=== PATIENT | female | born 1945 | race African-American/Black ===

== ENCOUNTER 2016-11-30 02:55 | Observation (INO) | payer OTHER ==
[2016-11-30] MEDS ORDERED: ASPIRIN 81 MG CHEWABLE TABLETS PO ONE (04:19)
[2016-11-30] MEDS ORDERED: ASPIRIN 81 MG CHEWABLE TABLETS ONE (04:22)
--- NOTE | 2016-11-30 04:22 | PDOC ---
*Physical Exam - Vital Signs Last Vital Signs Temp Pulse Resp BP Pulse Ox 97.5 F L 75 15 163/95 98 11/30/16 03:50 11/30/16 03:50 11/30/16 03:50 11/30/16 03:50 11/30/16 03:50 ED Treatment Course - LABORATORY CBC & Chemistry Diagram: 11/30/16 04:20 11/30/16 04:20 Medical Decision Making - Medical Decision Making 11/30/16 06:15 Pt seen by the Advanced Practice Provider under my direct supervision Ancillary studies reviewed I agree with plan as outlined by the Advanced Practice Provider
--- NOTE | 2016-11-30 04:31 | PDOC ---
History of Present Illness - General Chief Complaint: Chest Pain Stated Complaint: CHEST PAIN Time Seen by Provider: 11/30/16 04:19 History Source: Patient - History of Present Illness Initial Comments: 11/30/16 05:40 71-year-old Left-sided chest pain, radiating to the back with nausea since yesterday. Denies diaphoresis, palpitations, dizziness, headache, vomiting diarrhea. Reports feeling bloated. Patient has a past medical history of hypertension. Past History - Past Medical History Allergies/Adverse Reactions: Allergies Allergy/AdvReac Type Severity Reaction Status Date / Time Penicillins Allergy Verified 11/30/16 03:50 Home Medications: Ambulatory Orders Amlodipine Besylate [Norvasc -] 10 mg PO DAILY 08/19/12 HTN: Yes - Surgical History Orthopedic Surgery: Yes (ANKLE SX-L) - Suicide/Smoking/Psychosocial Hx Smoking Status: No Smoking History: Never smoked Have you smoked in the past 12 months: No Number of Cigarettes Smoked Daily: 0 Information on smoking cessation initiated: No Hx Alcohol Use: No Drug/Substance Use Hx: No Review of Systems - Review of Systems Able to Perform ROS?: Yes Is the patient limited Montenegrin proficient: No Constitutional: No: Symptoms Reported, See HPI, Chills, Diaphoresis, Fever, Loss of Appetite, Malaise, Night Sweats, Weakness, Weight Stable, Unintentional Wgt. Loss, Unexplained wgt Loss, Other *Physical Exam - Vital Signs Last Vital Signs Temp Pulse Resp BP Pulse Ox 97.5 F L 75 15 163/95 98 11/30/16 03:50 11/30/16 03:50 11/30/16 03:50 11/30/16 03:50 11/30/16 03:50 - Physical Exam General Appearance: Yes: Appropriately Dressed HEENT: positive: Normal ENT Inspection Respiratory/Chest: positive: Lungs Clear, Normal Breath Sounds. negative: Chest Tender Cardiovascular: positive: Regular Rhythm, Regular Rate, S1, S2 Gastrointestinal/Abdominal: positive: Normal Bowel Sounds, Soft Musculoskeletal: positive: Normal Inspection Extremity: positive: Normal Capillary Refill, Normal Inspection, Normal Range of Motion Integumentary: positive: Normal Color, Dry, Warm Neurologic: positive: Fully Oriented, Alert, Normal Mood/Affect Heart Score/ECG Review - History History: Slightly suspicious - Electrocardiogram EKG: Non specific repolarization disturbance - Age Age: >/= 65 - Risk Factors Risk Factors Heart Score: Yes Hx Hypertension Based on the list above the patient has:: 1-2 risk factors - Troponin Troponin: </= normal limit - Score Heart Score - Total: 4 - ECG Intrepretation Rhythm: Regular Rhythm Comment:: 11/30/16 05:51 Normal sinus rhythm, incomplete right bundle branch block ED Treatment Course - LABORATORY CBC & Chemistry Diagram: 11/30/16 04:20 11/30/16 04:20 - ADDITIONAL ORDERS Additional order review: Laboratory Results 11/30/16 11/30/16 04:20 04:20 PT with INR 10.60 INR 0.94 D-Dimer < 200 Sodium 144 Potassium 3.6 Chloride 107 Carbon Dioxide 23 D Anion Gap 14 BUN 12 Creatinine 0.7 D Creat Clearance w eGFR > 60 Random Glucose 96 Calcium 9.4 Magnesium 2.1 Total Bilirubin 0.4 AST 26 D ALT 24 Alkaline Phosphatase 89 Creatine Kinase 285 H Creatine Kinase Index 1.4 CK-MB (CK-2) 4.012 H Troponin I < 0.02 Total Protein 7.9 Albumin 4.0 11/30/16 04:20 RBC 4.78 MCV 78.6 L MCHC 33.8 RDW 14.2 MPV 8.7 Neutrophils % 67.6 D Lymphocytes % 25.5 D Monocytes % 6.2 Eosinophils % 0.5 Basophils % 0.2 - RADIOLOGY Radiology Studies Ordered: Category Date Time Status CHEST PA & LAT [RAD] Stat Radiology 11/30/16 04:19 Taken - Medications Given in the ED: ED Medications Discontinued Medications Generic Name Dose Route Start Last Admin Trade Name Freq PRN Reason Stop Dose Admin Aspirin 162 mg 11/30/16 04:19 11/30/16 04:34 Asa - PO 11/30/16 04:20 162 mg ONCE ONE Administration Progress Note - Progress Note Progress Note: A: Chest pain P: cbc cmp cardiac enzymes chest xray: negative ua will place in observation for this acute chest pain. pending admission by hospitalist *DC/Admit/Observation/Transfer Diagnosis at time of Disposition: Chest pain Qualifiers: Chest pain type: unspecified Qualified Code(s): R07.9 - Chest pain, unspecified - Discharge Dispostion Admit: Yes Decision to Admit order Date/Time: Decision to Admit Order Category Date Time Status Decision to Admit to Hospital Routine Admission 11/30/16 07:10 Active - Referrals Referrals: STAFF,NOT ON [Primary Care Provider] - - Patient Instructions Printed Discharge Instructions: DI for Chest Pain
[2016-11-30 04:38] LABS: BASOPHIL 0.2 % (0-2.0); EOSINOPHIL 0.5 % (0-4.5); MCH 26.6 pg (25.7-33.7); MCHC 33.8 g/dl (32.0-36.0); MEAN CELL VOLUME 78.6 fl (80-96); MEAN PLT VOLUME 8.7 fl (7.5-11.1); NEUTROPHILS 67.6 % (42.8-82.8); PLATELET COUNT 236 K/MM3 (134-434); RDW 14.2 % (11.6-15.6); WHITE BLOOD COUNT 6.1 K/mm3 (4.0-10.0)
[2016-11-30 04:53] LABS: INR 0.94 (0.82-1.09)
[2016-11-30 05:22] LABS: ANION GAP 14 (8-16); BILIRUBIN,TOTAL 0.4 mg/dL (0.2-1.0); CALCIUM 9.4 mg/dL (8.5-10.1); CO2 23 mmol/L (21-32); CREATININE 0.7 mg/dL (0.55-1.02); GLUCOSE,RANDOM 96 mg/dL (74-106); MAGNESIUM 2.1 mg/dL (1.8-2.4); SGOT/AST 26 U/L (15-37); SGPT/ALT 24 U/L (12-78); TOT PROT 7.9 g/dl (6.4-8.2)
[2016-11-30 05:25] LABS: ALK PHOS 89 U/L (45-117); CPK 285 IU/L (26-192); TROPONIN I < 0.02 ng/ml (0.00-0.05)
[2016-11-30 07:08] LABS: D-DIMER < 200 ng/ml (<200-235)
[2016-11-30] MEDS ORDERED: ACETAMINOPHEN 325 MG TABLET (FP) PO PRN (09:35)
--- NOTE | 2016-11-30 09:40 | PN ---
Teaching Attending Note Name of Resident: Jaime Esparza ATTENDING PHYSICIAN STATEMENT I saw and evaluated the patient. I reviewed the resident's note and discussed the case with the resident. I agree with the resident's findings and plan as documented. SUBJECTIVE: This is a 71 year old woman with a history of HTN who comes to the ER complaining of chest pain. She says she had pain across her back yesterday. She thought it was musculoskeletal. Around 2 am, the pain radiated around the left side of her chest. She had no SOB, nausea, diaphoresis, palpitations. OBJECTIVE: Vital Signs Period Temp Pulse Resp BP Sys/Casiano Pulse Ox Last 24 Hr 97.5 F 71-75 15-18 133-163/67-95 98-98 HEART: S1S2, RRR LUNGS: Clear ABDOMEN: Soft, non-tender, non-distended, normal BS EXTREMITIES: No edema Home Medications Medication Instructions Recorded Amlodipine Besylate [Norvasc -] 10 mg PO DAILY 08/19/12 Laboratory Tests 11/30/16 11/30/16 11/30/16 04:20 04:20 04:20 WBC 6.1 D RBC 4.78 Hgb 12.7 Hct 37.6 MCV 78.6 L MCH 26.6 MCHC 33.8 RDW 14.2 Plt Count 236 MPV 8.7 Neutrophils % 67.6 D Lymphocytes % 25.5 D Monocytes % 6.2 Eosinophils % 0.5 Basophils % 0.2 PT with INR 10.60 INR 0.94 D-Dimer < 200 Sodium 144 Potassium 3.6 Chloride 107 Carbon Dioxide 23 D Anion Gap 14 BUN 12 Creatinine 0.7 D Creat Clearance w eGFR > 60 Random Glucose 96 Calcium 9.4 Magnesium 2.1 Total Bilirubin 0.4 AST 26 D ALT 24 Alkaline Phosphatase 89 Creatine Kinase 285 H Creatine Kinase Index 1.4 CK-MB (CK-2) 4.012 H Troponin I < 0.02 Total Protein 7.9 Albumin 4.0 ASSESSMENT AND PLAN: This is a 71 year old woman with a history of HTN who presented to the ER this morning because of chest pain. 1. Chest pain - HEART score 3 - Observe on telemetry - Serial troponins - Start aspirin - Echocardiogram - Cardiology eval - ? outpatient stress if work up unremarkable 2. HTN - Continue Norvasc
--- NOTE | 2016-11-30 09:51 | HP ---
CHIEF COMPLAINT: chest pain. PCP: Dr. Abbott HISTORY OF PRESENT ILLNESS: 71 yo F with significant PMHx of HTN presents with 2 day history of chest pain. She describes 6/10 left chest wall pressure that is constant and some associated left shoulder tightness. Pain started one day prior and located at mid back then resolved and moved to left chest. Pain partially relieved with positional change. NO exacerbating factors. Not related to activity or associated SOB/diaphoresis. She had similar pain many years ago and had a negative stress test at that time. Denies LEMON, SOB, palpitations, abdominal pain or N/V. ER course was notable for: (1)EKG NSR with no st or t wave changes (2)CXR shows no acute pathology (3)tropinin (-) x1 Recent Travel:Denies PAST MEDICAL HISTORY: HTN PAST SURGICAL HISTORY:lymph node resection and . Social History: Smoking: smoked for very short time over 30 yrs ago. Alcohol:denies Drugs: denies Family History: Allergies Penicillins Allergy (Verified 11/30/16 03:50) HOME MEDICATIONS: Home Medications Medication Instructions Recorded Amlodipine Besylate [Norvasc -] 10 mg PO DAILY 08/19/12 REVIEW OF SYSTEMS CONSTITUTIONAL: Absent: fever, chills, diaphoresis, generalized weakness, malaise, loss of appetite, weight change HEENT: Absent: rhinorrhea, nasal congestion, throat pain, throat swelling, difficulty swallowing, mouth swelling, ear pain, eye pain, visual changes CARDIOVASCULAR: chest pain Absent: , syncope, palpitations, irregular heart rate, lightheadedness, peripheral edema RESPIRATORY: Absent: cough, shortness of breath, dyspnea with exertion, orthopnea, wheezing, stridor, hemoptysis GASTROINTESTINAL: Absent: abdominal pain, abdominal distension, nausea, vomiting, diarrhea, constipation, melena, hematochezia GENITOURINARY: Absent: dysuria, frequency, urgency, hesitancy, hematuria, flank pain, genital pain MUSCULOSKELETAL: Absent: myalgia, arthralgia, joint swelling, back pain, neck pain SKIN: Absent: rash, itching, pallor HEMATOLOGIC/IMMUNOLOGIC: Absent: easy bleeding, easy bruising, lymphadenopathy, frequent infections ENDOCRINE: Absent: unexplained weight gain, unexplained weight loss, heat intolerance, cold intolerance NEUROLOGIC: Absent: headache, focal weakness or paresthesias, dizziness, unsteady gait, seizure, mental status changes, bladder or bowel incontinence PSYCHIATRIC: Absent: anxiety, depression, suicidal or homicidal ideation, hallucinations. PHYSICAL EXAMINATION Vital Signs - 24 hr 11/30/16 07:46 Pulse Rate [ 71 Right Apical] Respiratory 18 Rate Blood Pressure 133/67 [Right Arm] O2 Sat by Pulse 98 Oximetry (%) GENERAL: AAOx3 NAD HEAD: NC/AT EYES: PERLLA, EOMI, conjunctiva clear. No lid lag. EARS, NOSE, THROAT: Moist mucous membranes. NECK:supple, no jvd LUNGS:CTAB. No wheezes, and no crackles. No accessory muscle use. HEART: Regular rate and rhythm, normal S1 and S2 without murmur, rub or gallop. ABDOMEN: Soft, nontender, not distended, normoactive bowel sounds, no guarding, no rebound, no masses. No hepatomegaly or splenomegaly. MUSCULOSKELETAL: Normal range of motion at all joints. No bony deformities or tenderness. No CVA tenderness. UPPER EXTREMITIES: 2+ pulses, warm, well-perfused. No cyanosis. No clubbing. No peripheral edema. LOWER EXTREMITIES: 2+ pulses, warm, well-perfused. No calf tenderness. No peripheral edema. NEUROLOGICAL: Cranial nerves II-XII intact. Normal speech.gait not observed. PSYCHIATRIC: Cooperative. Good eye contact. Appropriate mood and affect. SKIN: Warm, dry, normal turgor, no rashes or lesions noted, normal capillary refill. ASSESSMENT/PLAN: 71 yo F with significant PMHx of HTN will be placed on observation to r/o ACS. Problem List - Problem (1) Chest pain Assessment/Plan: * Will place on tele obs. * Cardiology consult. * Serial troponins Q6H * ECHO pending. * Possible stress as outpatient pending (-) trops. (2) HTN (hypertension) Assessment/Plan: * Continue Norvas 10mg PO daily. Visit type - Emergency Visit Emergency Visit: Yes ED Registration Date: 11/30/16 Care time: The patient presented to the Emergency Department on the above date and was hospitalized for further evaluation of their emergent condition. - New Patient This patient is new to me today: Yes Date on this admission: 11/30/16 - Critical Care Critical Care patient: No
--- NOTE | 2016-11-30 10:51 | CON.CARD ---
Consult Consult Specialty:: Cardiology Referred by:: Hospitalist Reason for Consultation:: Cardiac evaluation - History of Present Illness Chief Complaint: Chest pain History of Present Illness: Patient is a 71 year old female with underlying history of hypertension who presents with chest discomfort across the precordium. She denies shortness of breath or radiation of pain. She denies palpitations. She denies paroxysmal nocturnal dyspnea or orthopnea. She denies fever or chills. She denies headache or lightheadedness. Cardiology consultation was called for further evaluation. - History Source History Provided By: Patient Limitations to Obtaining History: No Limitations - Past Medical History Cardio/Vascular: Yes: HTN - Past Surgical History Past Surgical History: Yes: - Alcohol/Substance Use Hx Alcohol Use: No History of Substance Use: reports: None - Smoking History Smoking history: Former smoker Have you smoked in the past 12 months: No Aproximately how many cigarettes per day: 0 - Social History History of Recent Travel: No Home Medications - Allergies Allergies/Adverse Reactions: Allergies Allergy/AdvReac Type Severity Reaction Status Date / Time Penicillins Allergy Verified 11/30/16 03:50 - Home Medications Home Medications: Ambulatory Orders Amlodipine Besylate [Norvasc -] 10 mg PO DAILY 08/19/12 Review of Systems - Review of Systems Constitutional: denies: Chills, Fever Cardiovascular: reports: Chest Pain. denies: Palpitations, Shortness of Breath Respiratory: denies: Cough, Hemoptysis, Orthopnea, PND, SOB, SOB on Exertion Gastrointestinal: denies: Abdominal Pain, Constipation, Diarrhea, Melena, Nausea , Rectal Bleeding, Vomiting Musculoskeletal: denies: Joint Pain Neurological: denies: Dizziness, Headache, Seizure, Syncope Vital Signs: Vital Signs Temperature 97.5 F L 11/30/16 03:50 Pulse Rate 71 11/30/16 07:46 Respiratory Rate 18 11/30/16 07:46 Blood Pressure 133/67 11/30/16 07:46 O2 Sat by Pulse Oximetry (%) 98 11/30/16 07:46 Neck: Yes: Supple Respiratory: Yes: CTA Bilaterally Gastrointestinal: Yes: Normal Bowel Sounds, Soft. No: Tenderness Cardiovascular: Yes: Regular Rate and Rhythm. No: Gallop JVD: No Carotid Bruit: No PMI: Non-Displaced Heart Sounds: Yes: S1, S2 Murmur: No: Systolic Murmur, Diastolic Murmur Edema: No - Other Data Labs, Other Data: INR, PTT INR 0.94 (0.82-1.09) 11/30/16 04:20 Laboratory Results - last 24 hr 11/30/16 11/30/16 11/30/16 04:20 04:20 04:20 WBC 6.1 D RBC 4.78 Hgb 12.7 Hct 37.6 MCV 78.6 L MCH 26.6 MCHC 33.8 RDW 14.2 Plt Count 236 MPV 8.7 Neutrophils % 67.6 D Lymphocytes % 25.5 D Monocytes % 6.2 Eosinophils % 0.5 Basophils % 0.2 PT with INR 10.60 INR 0.94 D-Dimer < 200 Sodium 144 Potassium 3.6 Chloride 107 Carbon Dioxide 23 D Anion Gap 14 BUN 12 Creatinine 0.7 D Creat Clearance w eGFR > 60 Random Glucose 96 Calcium 9.4 Magnesium 2.1 Total Bilirubin 0.4 AST 26 D ALT 24 Alkaline Phosphatase 89 Creatine Kinase 285 H Creatine Kinase Index 1.4 CK-MB (CK-2) 4.012 H Troponin I < 0.02 Total Protein 7.9 Albumin 4.0 11/30/16 12:10 WBC RBC Hgb Hct MCV MCH MCHC RDW Plt Count MPV Neutrophils % Lymphocytes % Monocytes % Eosinophils % Basophils % PT with INR INR D-Dimer Sodium Potassium Chloride Carbon Dioxide Anion Gap BUN Creatinine Creat Clearance w eGFR Random Glucose Calcium Magnesium Total Bilirubin AST ALT Alkaline Phosphatase Creatine Kinase Creatine Kinase Index CK-MB (CK-2) Troponin I < 0.02 Total Protein Albumin Echo: Pending Problem List - Problems (1) Chest pain Code(s): R07.9 - CHEST PAIN, UNSPECIFIED Qualifiers: Chest pain type: other chest pain Qualified Code(s): R07.89 - Other chest pain; R07.89 - Other chest pain; R07.8 - Other chest pain (2) HTN (hypertension) Code(s): I10 - ESSENTIAL (PRIMARY) HYPERTENSION Qualifiers: Hypertension type: essential hypertension Qualified Code(s): I10 - Essential (primary) hypertension; I10 - Essential (primary) hypertension; I10 - Essential (primary) hypertension Assessment/Plan 1. Chest pain syndrome, etiology to be determined 2. Hypertension PLAN: 1. Trend troponin 2. Continue Amlodipine 3. Transthoracic echocardiography to assess LV/RV and valvular function 4. If cardiac enzymes are negative, further cardiac work up can be done as outpatient Further plans are to follow Keegan Hackett MD
[2016-11-30] MEDS ORDERED: amLODIPine BESYLATE 5 MG TABLET (FP) ONE (10:57)
[2016-11-30] MEDS ORDERED: amLODIPine BESYLATE 10 MG TABLET (FP) PO SCH (11:00)
[2016-11-30 13:58] VITALS: BMI 27.3
--- NOTE | 2016-11-30 18:23 | DS ---
Physical Exam: SUBJECTIVE: Patient seen and examined in ED. Family members present. Voices no complaints. OBJECTIVE: Vital Signs Period Temp Pulse Resp BP Sys/Casiano Pulse Ox Last 24 Hr 62-71 16-18 133-136/67-85 98-98 PHYSICAL EXAM GENERAL: The patient is awake, alert, and fully oriented, in no acute distress. HEAD: Normal with no signs of trauma. EYES: PERRL, extraocular movements intact, sclera anicteric, conjunctiva clear. LUNGS: Breath sounds equal, clear to auscultation bilaterally, no wheezes, no crackles, no accessory muscle use. HEART: Regular rate and rhythm, S1, S2 without murmur, rub or gallop. ABDOMEN: Soft, nontender, nondistended, normoactive bowel sounds, no guarding, no rebound EXTREMITIES: 2+ pulses, warm, well-perfused, no edema. NEUROLOGICAL: Cranial nerves II through XII grossly intact. Normal speech. LABS CBCD WBC 6.1 K/mm3 (4.0-10.0) D 11/30/16 04:20 RBC 4.78 M/mm3 (3.60-5.2) 11/30/16 04:20 Hgb 12.7 GM/dL (10.7-15.3) 11/30/16 04:20 Hct 37.6 % (32.4-45.2) 11/30/16 04:20 MCV 78.6 fl (80-96) L 11/30/16 04:20 MCHC 33.8 g/dl (32.0-36.0) 11/30/16 04:20 RDW 14.2 % (11.6-15.6) 11/30/16 04:20 Plt Count 236 K/MM3 (134-434) 11/30/16 04:20 MPV 8.7 fl (7.5-11.1) 11/30/16 04:20 CMP Sodium 144 mmol/L (136-145) 11/30/16 04:20 Potassium 3.6 mmol/L (3.5-5.1) 11/30/16 04:20 Chloride 107 mmol/L (98-107) 11/30/16 04:20 Carbon Dioxide 23 mmol/L (21-32) D 11/30/16 04:20 Anion Gap 14 (8-16) 11/30/16 04:20 BUN 12 mg/dL (7-18) 11/30/16 04:20 Creatinine 0.7 mg/dL (0.55-1.02) D 11/30/16 04:20 Creat Clearance w eGFR > 60 (>60) 11/30/16 04:20 Calcium 9.4 mg/dL (8.5-10.1) 11/30/16 04:20 Total Bilirubin 0.4 mg/dL (0.2-1.0) 11/30/16 04:20 AST 26 U/L (15-37) D 11/30/16 04:20 ALT 24 U/L (12-78) 11/30/16 04:20 Alkaline Phosphatase 89 U/L (45-117) 11/30/16 04:20 Total Protein 7.9 g/dl (6.4-8.2) 11/30/16 04:20 Albumin 4.0 g/dl (3.4-5.0) 11/30/16 04:20 HOSPITAL COURSE: Date of Admission:11/30/16 Date of Discharge: 11/30/16 Pre hospital course This is a 71 year old woman with a history of HTN who came to the ER complaining of chest pain. She said she had pain across her back the day before which she thought it was musculoskeletal. Around 2 am, the pain radiated around the left side of her chest. Pain partially relieved with positional change. No exacerbating factors. Not related to activity or associated SOB/diaphoresis. She had similar pain many years ago. Has had two stress tests over the past 5- 10 years which were negative. ER course was notable for: (1)EKG NSR with no st or t wave changes (2)CXR shows no acute pathology (3)tropinin (-) x1 Subsequent hospital course Patient was started on aspirin. Her home dose amlodipine was continued for hypertension. Troponins negative x 3. Echo showed normal LV, normal RV, moderate to severe TR, possible LVOT with a gradient. Discussed with proposal editor Dr. Hackett who saw and evaluated the the patient. Patient can be discharged with close outpatient followup. This was discussed with the patient. She prefers to stay within the [facility]. She will discuss with her primary care provider Dr. Abbott. Minutes to complete discharge: 35 Discharge Summary Reason For Visit: CHEST PAIN Current Active Problems Chest pain (Acute) HTN (hypertension) (Acute) Condition: Improved - Instructions Diet, Activity, Other Instructions: It is very important you follow up with your primary care provider, Dr. Mario Abbott, and that you make arrangements with him to be seen by a proposal editor. Return to the emergency department for any new or worsening symptoms. Referrals: Mario Abbott III [Non Staff, Medical] - Disposition: HOME - Home Medications Comprehensive Discharge Medication List: Ambulatory Orders Amlodipine Besylate [Norvasc -] 10 mg PO DAILY 08/19/12 This patient is new to me today: Yes Date on this admission: 12/01/16 Emergency Visit: Yes ED Registration Date: 11/30/16 Care time: The patient presented to the Emergency Department on the above date and was hospitalized for further evaluation of their emergent condition. Critical Care patient: No - Discharge Referral Referred to [facility] No
[2016-11-30 18:41] VITALS: BP 134/74; PULSE 76
[2016-11-30 18:43] VITALS: TEMP 98.2
--- NOTE | 2016-11-30 20:05 | EKG ---
Test Reason : Blood Pressure : / mmHG Vent. Rate : 095 BPM Atrial Rate : 095 BPM P-R Int : 136 ms QRS Dur : 096 ms QT Int : 368 ms P-R-T Axes : 042 -11 049 degrees QTc Int : 462 ms POOR DATA QUALITY, INTERPRETATION MAY BE ADVERSELY AFFECTED NORMAL SINUS RHYTHM INCOMPLETE RIGHT BUNDLE BRANCH BLOCK BORDERLINE ECG WHEN COMPARED WITH ECG OF 14-AUG-2014 14:01, VENT. RATE HAS INCREASED BY 35 BPM QT HAS LENGTHENED REPEAT EKG IF CLINICALLY INDICATED Confirmed by SANDEEP THOMPSON MD ([id number]) on 11/30/2016 8:05:19 PM Referred By: Confirmed By:SANDEEP THOMPSON MD
[2016-12-01] MEDS ORDERED: ASPIRIN COATED 81 MG TABLET.EC PO SCH (10:00)
== END 2016-11-30 18:40 | disposition home or self-care (01) ==
LOC: JER 02:55 → JERBED 07:10
PROVIDERS: ADMIT Internal Medicine; ATTEND Nurse Practitioner Acute Care
DX: R07.9 Chest pain, unspecified (principal); I10 Essential (primary) hypertension; Z88.0 Allergy status to penicillin
CPT/HCPCS: 36415; 71020-TC; 80053; 82550; 82553; 83735; 84484; 85025; 85379; 85610; 93005; 93010; 93306-TC; 99285-25; G0378

== ENCOUNTER 2017-02-18 01:43 | Emergency (ER) | payer OTHER ==
[2017-02-18] MEDS ORDERED: diphenhydrAMINE HCL 25 MG CAPSULE (FP) PO ONE ×2 (02:28→03:10)
[2017-02-18] MEDS ORDERED: predniSONE 20 MG TABLET (UD) PO ONE (02:38)
[2017-02-18 02:53] VITALS: BP 177/89; PULSE 86; TEMP 98.6; BMI 24.0
--- NOTE | 2017-02-18 03:08 | PDOC ---
History of Present Illness - General Chief Complaint: Allergic Reaction Stated Complaint: ALLERGIC REACTION Time Seen by Provider: 02/18/17 02:28 History Source: Patient Exam Limitations: No Limitations - History of Present Illness Initial Comments: 02/18/17 03:01 Patient is a 72F with history of prior reaction with hives and HTN here today complaining of hives. She states that she ate dinner that her roommate prepared , fell asleep, then woke up with hives. Denies chest pain, shortness of breath, and difficulty breathing. She describes the rash as on her thighs, abdomen, chest and arms. She states that the rash itches. She says she had one episode of something similar years in the past, but did not figure out what her trigger was then. Denies nausea, vomiting, fevers, chills. Past History - Past Medical History Allergies/Adverse Reactions: Allergies Allergy/AdvReac Type Severity Reaction Status Date / Time Penicillins Allergy Verified 02/18/17 02:05 Home Medications: Ambulatory Orders Amlodipine Besylate [Norvasc -] 10 mg PO DAILY 08/19/12 COPD: No HTN: Yes - Surgical History Orthopedic Surgery: Yes (ANKLE SX-L) - Immunization History Immunization Up to Date: Yes - Suicide/Smoking/Psychosocial Hx Smoking Status: No Smoking History: Never smoked Have you smoked in the past 12 months: No Number of Cigarettes Smoked Daily: 0 Information on smoking cessation initiated: No Hx Alcohol Use: No Drug/Substance Use Hx: No Substance Use Type: None Review of Systems - Review of Systems Comments:: 02/18/17 03:11 GENERAL/CONSTITUTIONAL: No fever or chills. No weakness. HEAD, EYES, EARS, NOSE AND THROAT: No change in vision. No sore throat. CARDIOVASCULAR: No chest pain or shortness of breath RESPIRATORY: No cough, wheezing, or hemoptysis. GASTROINTESTINAL: No nausea, vomiting, diarrhea or constipation. GENITOURINARY: No dysuria, frequency, or change in urination. MUSCULOSKELETAL: No joint or muscle swelling or pain. No neck or back pain. SKIN: Positive for rash NEUROLOGIC: No headache, vertigo, loss of consciousness, or change in strength/ sensation. ENDOCRINE: No increased thirst. No abnormal weight change ALLERGIC/IMMUNOLOGIC: Positive for hives and skin allergy. *Physical Exam - Vital Signs Last Vital Signs Temp Pulse Resp BP Pulse Ox 98.6 F 86 20 177/89 99 02/18/17 02:05 02/18/17 02:05 02/18/17 02:05 02/18/17 02:05 02/18/17 02:05 - Physical Exam Comments: 02/18/17 03:11 GENERAL: Awake, alert, and fully oriented, itching but breathing easily HEAD: No signs of trauma, normocephalic, atraumatic EYES: PERRLA, EOMI, sclera anicteric, conjunctiva clear ENT: Auricles normal inspection, hearing grossly normal, nares patent, oropharynx clear without exudates. Moist mucosa LUNGS: No distress, speaks full sentences, clear to auscultation bilaterally HEART: Regular rate and rhythm, normal S1 and S2, no murmurs, rubs or gallops, peripheral pulses normal and equal bilaterally. ABDOMEN: Soft, nontender, normoactive bowel sounds. No guarding, no rebound. No masses EXTREMITIES: Normal inspection, Normal range of motion, no edema. No clubbing or cyanosis. NEUROLOGICAL: Cranial nerves II through XII grossly intact. Normal speech, normal gait, no focal sensorimotor deficits SKIN: Diffuse maculopapular rash on arms, abdomen, legs. ED Treatment Course - Medications Given in the ED: ED Medications Discontinued Medications Generic Name Dose Route Start Last Admin Trade Name Taeq PRN Reason Stop Dose Admin Diphenhydramine HCl 25 mg 02/18/17 02:28 02/18/17 02:31 Benadryl - PO 02/18/17 02:29 25 mg ONCE ONE Administration Prednisone 40 mg 02/18/17 02:38 02/18/17 02:42 Deltasone - PO 02/18/17 02:39 40 mg ONCE ONE Administration Medical Decision Making - Medical Decision Making 02/18/17 03:14 72F with history of hives here today with allergic reaction. Vital signs stable and normal. Breathing easily. Will treat with benadryl and prednisone. Will re- evaluate to ensure patient improves. Will monitor. 02/18/17 05:01 Patient's rash has mostly resolved, no longer itching. Resting comfortably in bed. Patient's lungs are clear. Asking to go home. Will discharge with return precautions and PCP follow up. *DC/Admit/Observation/Transfer Diagnosis at time of Disposition: Urticaria - Discharge Dispostion Disposition: HOME Condition at time of disposition: Good Admit: No - Referrals Referrals: STAFF,NOT ON [Primary Care Provider] - - Patient Instructions Printed Discharge Instructions: DI for Hives Additional Instructions: Please return if you have any new, worsening or concerning symptoms. Please see your primary care physician next week to follow up on your condition. - Post Discharge Activity
--- NOTE | 2017-02-18 05:03 | PDOC ---
Attending Attestation - HPI HPI: 02/18/17 05:03 The patient is a 72 year old female with a significant PMH of prior allergic reactions and HTN who presents to the emergency department with hives beginning last night. She notes eating pasta and tomatoes for dinner and waking from sleep with itching and a diffuse rash. She reports no known allergic triggers. She denies asthma or COPD. Allergies: Penicillins <Marcin Gerardo - Last Filed: 02/18/17 05:03> - Resident Resident Name: Harjit Gautam - ED Attending Attestation I have performed the following: I have examined & evaluated the patient, The case was reviewed & discussed with the resident, I agree w/resident's findings & plan, Exceptions are as noted - Physicial Exam PE: 02/18/17 05:23 Physical Exam General Appearance: Yes: Appropriately Dressed. No: Apparent Distress, Intoxicated HEENT: positive: EOMI, URIEL, Normal ENT Inspection, Normal Voice, TMs Normal, Pharynx Normal. negative: Pale Conjunctivae, Photophobia, Scleral Icterus (R), Scleral Icterus (L) Neck: positive: Trachea midline, Normal Thyroid, Supple. negative: Tender, Rigid, Carotid bruit, Stridor, Lymphadenopathy (R), Lymphadenopathy (L), Thyromegaly Respiratory/Chest: positive: Lungs Clear, Normal Breath Sounds. negative: Chest Tender, Respiratory Distress, Accessory Muscle Use, Labored Respiration, RES, Crackles, Rales, Rhonchi, Stridor, Wheezing, Dullness Cardiovascular: positive: Regular Rhythm, Regular Rate, S1, S2. negative: Edema , JVD, Murmur, Bradycardia, Tachycardia Vascular Pulses: Dorsalis-Pedis (R): 2+, Doralis-Pedis (L): 2+ Gastrointestinal/Abdominal: positive: Normal Bowel Sounds, Flat, Soft. negative : Tender, Organomegaly, Pulsatile Mass, Increased Bowel Sounds, Decreased BS, Distended, Guarding, Rebound, Hernia, Hepatomegaly, Spleenomegaly Lymphatic: negative: Adenopathy, Tenderness Musculoskeletal: positive: Normal Inspection. negative: CVA Tenderness, Decreased Range of Motion Extremity: positive: Normal Capillary Refill, Normal Inspection, Normal Range of Motion, Pelvis Stable. negative: Tender, Pedal Edema, Swelling, Erythema Integumentary: positive: Normal Color, Dry, Warm. negative: Cyanotic, Erythema , Jaundice, Rash Neurologic: positive: memorial counselor II-XII NML intact, Fully Oriented, Alert, Normal Mood/ Affect, Motor Strength 5/5. negative: EOM Palsy, Facial Droop, Sensory Deficit - Medical Decision Making 02/18/17 05:23 pt treated and released <Jose De Jesus Ann - Last Filed: 02/18/17 05:24>
== END 2017-02-18 05:14 | disposition home or self-care (01) ==
LOC: JER 01:43
DX: L50.0 Allergic urticaria (principal); T78.40XA Allergy, unspecified, initial encounter
CPT/HCPCS: 99282-25

== ENCOUNTER 2018-06-07 14:12 | Emergency (ER) | payer OTHER ==
[2018-06-07 14:19] VITALS: BP 173/88; PULSE 79; TEMP 98.2; BMI 27.2
--- NOTE | 2018-06-07 14:20 | PDOC ---
Rapid Medical Evaluation Time Seen by Provider: 06/07/18 14:15 Medical Evaluation: Allergies Allergy/AdvReac Type Severity Reaction Status Date / Time Penicillins Allergy Verified 06/07/18 14:15 06/07/18 14:16 I have performed a brief in-person evaluation of this patient. The patient presents with a chief complaint of:Worsening pain to R leg x 1 month , today w/ numbness/tingling in R foot. States pain now radiating into thigh. Pain present w/ rest and movement. No trauma. Seen by pmd yesterday and told possible MSK and for possible PT in near future. Not taking anything for pain. 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 Discharge Disposition - Diagnosis Right leg pain - Referrals - Patient Instructions - Post Discharge Activity
[2018-06-07] MEDS ORDERED: ACETAMINOPHEN 325 MG TABLET (FP) PO ONE (15:44)
--- NOTE | 2018-06-07 15:44 | PDOC ---
History of Present Illness - General Chief Complaint: Pain, Acute Stated Complaint: RT LEG PAIN Time Seen by Provider: 06/07/18 14:15 History Source: Patient Exam Limitations: No Limitations Past History - Travel Traveled outside of the country in the last 30 days: No Close contact w/someone who was outside of country & ill: No - Past Medical History Allergies/Adverse Reactions: Allergies Allergy/AdvReac Type Severity Reaction Status Date / Time Penicillins Allergy Verified 06/07/18 14:15 Home Medications: Ambulatory Orders Amlodipine Besylate [Norvasc -] 10 mg PO DAILY 08/19/12 COPD: No HTN: Yes - Surgical History Orthopedic Surgery: Yes (ANKLE SX-L) - Immunization History Immunization Up to Date: Yes - Suicide/Smoking/Psychosocial Hx Smoking Status: No Smoking History: Never smoked Have you smoked in the past 12 months: No Number of Cigarettes Smoked Daily: 0 Hx Alcohol Use: No Drug/Substance Use Hx: No Substance Use Type: None Review of Systems - Review of Systems Able to Perform ROS?: Yes Comments:: 06/07/18 15:43 CONSTITUTIONAL: Absent: fever, chills, diaphoresis, generalized weakness, malaise, loss of appetite HEENT: Absent: rhinorrhea, nasal congestion, throat pain, throat swelling, difficulty swallowing, mouth swelling, ear pain, eye pain, visual Changes CARDIOVASCULAR: Absent: chest pain, loss of consciousness, palpitations, irregular heart rate, peripheral edema RESPIRATORY: Absent: cough, shortness of breath, dyspnea with exertion, orthopnea, wheezing, stridor, hemoptysis GASTROINTESTINAL: Absent: abdominal pain, abdominal distension, nausea, vomiting, diarrhea, constipation, melena, hematochezia GENITOURINARY: Absent: dysuria, frequency, urgency, hesitancy, hematuria, flank pain, genital pain MUSCULOSKELETAL: Present: R calf pain Absent: myalgia, arthralgia, joint swelling SKIN: Absent: rash, itching, pallor HEMATOLOGIC/IMMUNOLOGIC: Absent: easy bleeding, easy bruising, lymphadenopathy, frequent infections ENDOCRINE: Absent: unexplained weight gain, unexplained weight loss, heat intolerance, cold intolerance NEUROLOGIC: Absent: headache, focal weakness or paresthesias, dizziness, unsteady gait, seizure, mental status changes, bladder or bowel incontinence PSYCHIATRIC: Absent: anxiety, depression, suicidal or homicidal ideation, hallucinations. Is the patient limited Croatian proficient: No *Physical Exam - Vital Signs Last Vital Signs Temp Pulse Resp BP Pulse Ox 98.2 F 79 18 173/88 H 99 06/07/18 14:15 06/07/18 14:15 06/07/18 14:15 06/07/18 14:15 06/07/18 14:15 - Physical Exam Comments: 06/07/18 15:44 GENERAL: Well developed, well nourished. Awake and alert. No acute distress. CARDIOVASCULAR: Regular rate and rhythm. No murmurs, rubs, or gallops. Distal pulses are 2+ and symmetric. PULMONARY: No evidence of respiratory distress. Lungs clear to auscultation bilaterally. No wheezing, rales or rhonchi. MUSCULOSKELETAL Normal range of motion at all joints. No bony deformities or tenderness. No CVA tenderness. EXTREMITIES: No cyanosis. No clubbing. No edema. (+) r sided calf tenderness. SKIN: Warm and dry. Normal capillary refill. No rashes. No jaundice. NEUROLOGICAL: Alert, awake, appropriate. Cranial nerves 2-12 intact. No deficits to light touch and temperature in face, upper extremities and lower extremities. No motor deficits in the in face, upper extremities and lower extremities. Normoreflexic in the upper and lower extremities. Normal speech. Toes are down- going bilaterally. Gait is normal without ataxia. PSYCHIATRIC: Cooperative. Good eye contact. Appropriate mood and affect. Medical Decision Making - Medical Decision Making 06/07/18 17:53 the patient is a 73-year-old female with past medical history of hypertension, who presents to the ER today for right-sided calf pain 1 month. Patient states that she has had intermittent calf pain however over the past 3 days the pain has become consistent and started to radiate up to her right knee. She denies trauma or falling. Denies recent travel and smoking history. Denies numbness and tingling and weakness to the affected extremity, and gait changes. A/P: Right calf pain On exam right calf is mildly swollen and tender to palpation. Pain behind the right knee Doppler ultrasound of the right leg ordered to rule out DVT. It is negative at this time. Suspect muscle strain possible ruptured Lyons's cyst? Will refer to orthopedics Discharge home I discussed the physical exam findings, ancillary test results and final diagnoses with the patient. I answered all of the patient's questions. The patient was satisfied with the care received and felt comfortable with the discharge plan and treatment plan. The Patient agrees to follow up with the primary care physician/specialist within 24-72 hours. Return precautions were given. *DC/Admit/Observation/Transfer Diagnosis at time of Disposition: Right leg pain - Discharge Dispostion Disposition: HOME Condition at time of disposition: Stable Decision to Admit order: No - Referrals Referrals: Claus Interiano DO [Staff Physician] - - Patient Instructions Printed Discharge Instructions: DI for Leg Pain Additional Instructions: You were evaluated for your leg pain today You do not have any blood clots in your leg You may take Tylenol 650mg every 4 hours as needed for pain. Keep the leg elevated at rest Please follow up with orthopedics. A referral has been provided to you Return to the ED for fevers, worsening pain, or if you have any new or worsening symptoms - Post Discharge Activity
[2018-06-07] MEDS ORDERED: ACETAMINOPHEN 325 MG TABLET (FP) ONE (16:03)
== END 2018-06-07 16:36 | disposition home or self-care (01) ==
LOC: JERFT 14:12
DX: M79.604 Pain in right leg (principal); I10 Essential (primary) hypertension
CPT/HCPCS: 93971-TC; 99281-25

== ENCOUNTER 2018-06-09 18:12 | Emergency (ER) | payer OTHER ==
--- NOTE | 2018-06-09 18:19 | PDOC ---
Rapid Medical Evaluation Time Seen by Provider: 06/09/18 18:15 Medical Evaluation: Allergies Allergy/AdvReac Type Severity Reaction Status Date / Time Penicillins Allergy Verified 06/07/18 14:15 06/09/18 18:15 HPI: Malaise since 2 days ago seen in ER and discharged and followed up with PCP no better L sided facial tingling x3 hours EXAM: No gross deficits ORDERS: Labs and CT scan, cardiac work up Discharge Disposition - Diagnosis Facial tingling - Referrals - Patient Instructions - Post Discharge Activity
[2018-06-09 18:20] VITALS: TEMP 98.4; BMI 27.2
[2018-06-09] MEDS ORDERED: SODIUM CHLORIDE 1,000 ML IV SCH (18:30)
--- NOTE | 2018-06-09 20:15 | PDOC ---
History of Present Illness <Kendra Delong - Last Filed: 06/09/18 23:43> - General History Source: Patient Exam Limitations: No Limitations - History of Present Illness Initial Comments: Pt is a 73 yo F, with PMH of HTN, who is presenting with complaints of "squeezing and pressure" sensation in her R calf and L side of her face. Pt has had similar squeezing sensations intermittently over the past year, including on her face and neck. Pt states the cramping sensation has been occurring in her R calf since 2 days ago, and started for about 30 minutes on the L side of her face today. Pt was seen at [facility] 2 days ago, with negative DVT study of the b /l LE. Pt denies any fevers/chills, headache, weakness of her face or extremities, vision/hearing/taste changes, syncope, chest pain, palpitations, SOB, nausea/vomiting, abdominal pain, urinary symptoms, diarrhea/constipation, or leg swelling. Social: Pt denies any cigarette, alcohol, or drug use. Pt denies any recent travel or sick contacts. Surgical: no relevant history. Family: no relevant history. 06/10/18 03:45 <Rosa Krause - Last Filed: 06/10/18 03:53> - General Chief Complaint: Pain, Acute Stated Complaint: LEG/FACIAL PAIN Time Seen by Provider: 06/09/18 18:15 NIH Stroke Scale - Last Known Well Date/Time & Onset Date Last Known Well: 06/07/18 - Initial Evaluation Level of consciousness: Alert Ask patient the month and their age: Answers both correctly Ask patient to open & close eyes; make fist and let go: Obeys both correctly Best gaze (horizontal eye movement): Normal Visual field testing: No visual field loss (poor visual tracking, but no vision loss nor neglect) Facial paresis (Show teeth/raise eyebrows/close eyes tight): Normal symmetrical movement Motor Function: Left Arm: Normal Motor Function: Right Arm: Normal (extends arm 90 (or 45) degrees for 10 seconds without drift Motor Function: Left Leg: Normal (extends leg 30 degrees for 5 seconds without drift) Motor Function: Right Leg: Normal (extends leg 30 degrees for 5 seconds without drift) Limb Ataxia: No ataxia Sensory(Use pinprick test arms,legs,trunk,face/side to side): Normal Best language (Describe picture, name items, read sentences): No Aphasia Dysarthria (read several words): Normal articulation Extinction and Inattention: No abnormality - Total Score NIH Stroke Scale Score: 0 <Rosa Krause - Last Filed: 06/10/18 03:53> Past History <Kendra Delong - Last Filed: 06/09/18 23:43> - Travel Traveled outside of the country in the last 30 days: No Close contact w/someone who was outside of country & ill: No - Past Medical History COPD: No HTN: Yes - Surgical History Orthopedic Surgery: Yes (ANKLE SX-L) - Immunization History Immunization Up to Date: Yes - Suicide/Smoking/Psychosocial Hx Smoking Status: No Smoking History: Never smoked Have you smoked in the past 12 months: No Number of Cigarettes Smoked Daily: 0 Information on smoking cessation initiated: No Hx Alcohol Use: No Drug/Substance Use Hx: No Substance Use Type: None <Rosa Krause - Last Filed: 06/10/18 03:53> - Past Medical History Allergies/Adverse Reactions: Allergies Allergy/AdvReac Type Severity Reaction Status Date / Time Penicillins Allergy Verified 06/09/18 18:21 Home Medications: Ambulatory Orders Amlodipine Besylate [Norvasc -] 10 mg PO DAILY 08/19/12 Review of Systems - Review of Systems Able to Perform ROS?: Yes Is the patient limited Spanish proficient: No Constitutional: Yes: Weight Stable. No: Chills, Diaphoresis, Fever, Loss of Appetite, Malaise, Weakness HEENTM: No: Blurred Vision, Recent change in vision, Double Vision, Nose Pain, Nose Congestion, Tinnitus, Hearing Loss, Throat Pain, Mouth Pain, Difficulty Swallowing Respiratory: No: Cough, Orthopnea, Shortness of Breath Cardiac (ROS): No: Chest Pain, Edema, Irregular Heart Rate, Lightheadedness, Palpitations, Syncope, Chest Tightness ABD/GI: No: Constipated, Diarrhea, Nausea, Poor Appetite, Poor Fluid Intake, Vomiting : No: Burning, Dysuria, Pain, Urgency Musculoskeletal: Yes: See HPI, Muscle Pain (recent R calf pain/"tightness"). No : Back Pain, Joint Pain, Joint Swelling, Muscle Weakness Integumentary: No: Erythema, Rash Neurological: Yes: See HPI, Paresthesia. No: Headache, Numbness, Weakness, Unsteady Gait, Ataxia, Dizziness Psychiatric: No: Stressors, Sleep Pattern Change, Change in Appetite Endocrine: No: Increased Urine, Change in Weight Hematologic/Lymphatic: No: Anemia, Blood Clots, Easy Bleeding, Easy Bruising All Other Systems: Reviewed and Negative <Rosa Krause - Last Filed: 06/10/18 03:53> *Physical Exam - Vital Signs Last Vital Signs Temp Pulse Resp BP Pulse Ox 98.4 F 82 16 169/90 100 06/09/18 18:17 06/09/18 18:17 06/09/18 18:17 06/09/18 18:17 06/09/18 18:17 <Kendra Delong - Last Filed: 06/09/18 23:43> - Vital Signs Last Vital Signs Temp Pulse Resp BP Pulse Ox 98.4 F 82 16 169/90 100 06/09/18 18:17 06/09/18 18:17 06/09/18 18:17 06/09/18 18:17 06/09/18 18:17 - Physical Exam Comments: BP 169/90 (pt baseline on prior visits), HR 82, pt afebrile. Pt in NAD, lying comfortably. Normal body habitus. Pt alert and oriented x3. diesel truck mechanic generally intact, muscular strength and sensation intact. Poor visual tracking, but no other disturbances in cerebellar testing (heel-eller, finger- nose). Negative romberg. No visual neglect or decreased visual acuity. No midline spinal tenderness, step-offs, or crepitus. Pt able to bear weight on b/l legs. No TTP of either b/l LE. No edema of b/l LE. Head normocephalic, atraumatic. Eyes PERRLA, EOMI. Oropharynx without erythema or exudates, no LAD b/l. No nasal congestion, hearing intact. Clear heart sounds, S1/S2, no JVD, b/l pedal edema, or heart murmur. Clear lung sounds, no respiratory distress, wheezes, crackles, or accessory muscle use. No abdominal or CVA tenderness to palpation, no rebound, no guarding. Abdomen soft, non-distended, and with normoactive bowel sounds. Skin without jaundice or rash. 06/09/18 20:14 06/10/18 03:31 <Rosa Krause - Last Filed: 06/10/18 03:53> ED Treatment Course - LABORATORY CBC & Chemistry Diagram: 06/09/18 20:08 06/09/18 20:08 - ADDITIONAL ORDERS Additional order review: Laboratory Results 06/09/18 06/09/18 06/09/18 22:48 20:08 20:08 PT with INR INR Sodium 141 Potassium 3.9 Chloride 106 Carbon Dioxide 28 Anion Gap 6 L BUN 14 Creatinine 0.7 Creat Clearance w eGFR 82.49 Random Glucose 87 Calcium 9.9 Total Bilirubin 0.5 AST 25 ALT 23 Alkaline Phosphatase 85 Creatine Kinase 236 H Creatine Kinase Index 1.4 CK-MB (CK-2) 3.4 Troponin I < 0.02 Total Protein 8.1 Albumin 4.2 Triglycerides 52 Cholesterol 273 H Total LDL Cholesterol 162 H HDL Cholesterol 100 H Urine Color Yellow Urine Appearance Clear Urine pH 7.5 Ur Specific [place] 1.009 L Urine Protein Negative Urine Glucose (UA) Negative Urine Ketones Negative Urine Blood Negative Urine Nitrite Negative Urine Bilirubin Negative Urine Urobilinogen 0.2 Ur Leukocyte Esterase Negative Blood Type A POSITIVE Antibody Screen Negative 06/09/18 20:08 PT with INR 11.60 INR 0.98 Sodium Potassium Chloride Carbon Dioxide Anion Gap BUN Creatinine Creat Clearance w eGFR Random Glucose Calcium Total Bilirubin AST ALT Alkaline Phosphatase Creatine Kinase Creatine Kinase Index CK-MB (CK-2) Troponin I Total Protein Albumin Triglycerides Cholesterol Total LDL Cholesterol HDL Cholesterol Urine Color Urine Appearance Urine pH Ur Specific [place] Urine Protein Urine Glucose (UA) Urine Ketones Urine Blood Urine Nitrite Urine Bilirubin Urine Urobilinogen Ur Leukocyte Esterase Blood Type Antibody Screen 06/09/18 20:08 RBC 4.92 MCV 82.4 MCHC 32.3 RDW 14.5 MPV 8.3 Neutrophils % 52.3 D Lymphocytes % 38.0 D Monocytes % 8.4 Eosinophils % 0.3 Basophils % 1.0 D - Medications Given in the ED: ED Medications Discontinued Medications Generic Name Dose Route Start Last Admin Trade Name Freq PRN Reason Stop Dose Admin Acetaminophen 650 mg 06/09/18 21:59 06/09/18 22:47 Tylenol - PO 06/09/18 22:00 650 mg ONCE ONE Administration Magnesium Sulfate/Dextrose 1 100 mls @ 100 mls/hr 06/09/18 21:57 06/09/18 22: 47 gm/ Miscellaneous IVPB 06/09/18 22:56 100 mls/hr ONCE ONE Administration Potassium Chloride 20 meq 06/09/18 21:57 06/09/18 22:47 Potassium Chloride Oral Liquid PO 06/09/18 21:58 20 meq ONCE ONE Administration <Kendra Delong - Last Filed: 06/09/18 23:43> - LABORATORY CBC & Chemistry Diagram: 06/09/18 20:08 06/09/18 20:08 <Rosa Krause - Last Filed: 06/10/18 03:53> Medical Decision Making - Medical Decision Making Pt was seen at bedside, also will be seen by attending Dr. Delong. Pt presenting with complaints of "squeezing and pressure" sensation in her R calf and L side of her face. Pt has had similar squeezing sensations intermittently over the past year, including on her face and neck. Pt states the cramping sensation has been occurring in her R calf since 2 days ago, and started for about 30 minutes on the L side of her face today. Pt was seen at [facility] 2 days ago, with negative DVT study of the b/l LE. Pt denies any fevers/chills, headache, weakness of her face or extremities, vision/hearing/taste changes, syncope, chest pain, palpitations, SOB, nausea/vomiting, abdominal pain, urinary symptoms, diarrhea/ constipation, or leg swelling. Likely muscle spasms given pt history (intermittent over past year). Pt has no FNDs on exam to suggest CVA, but will obtain CT for stroke and lipid panel, as pt did have poor visual tracking. Will also check electrolytes/CMP as hypoK and hypo/hyperCa can produce similar symptoms. Ordered work-up including CBC, CMP, lipid panel, cardiac profile, coags, ECG, non-contrast head CT. Will continue to reassess pt and monitor for symptomatic improvement. 06/09/18 20:14 ECG: NSR, intervals WNL. No TWIs or significant ST segment changes. No significant changes from prior ECG. 06/09/18 20:15 Clinical information: evaluate for CVA Negative exam. No discrete noncontrast CT pathology is seen. 06/09/18 21:57 CBC and CMP generally WNL (K 3.9). Coags WNL Trop <.02 with no ECG changes. Providing 20 mg PO KCl and 1 mg IV Mg to assist with potential electrolyte imbalances that could be causing pts muscle cramping/tightness symptoms. Considering normal lab results and imaging, pt can be discharged to home with follow-up. Pt advised to follow with PCP to discuss cholesterol levels and starting a statin. Pt advised to follow-up with PCP in 1-2 days. Strict return precautions provided with pt understanding. 06/09/18 22:56 06/10/18 03:33 <Rosa Krause - Last Filed: 06/10/18 03:53> *DC/Admit/Observation/Transfer <DelongKendra - Last Filed: 06/09/18 23:43> - Discharge Dispostion Decision to Admit order: No <NelidaRosa - Last Filed: 06/10/18 03:53> Diagnosis at time of Disposition: Muscle cramp Leg pain Qualifiers: Laterality: right Qualified Code(s): M79.604 - Pain in right leg HTN (hypertension) Qualifiers: Hypertension type: essential hypertension Qualified Code(s): I10 - Essential ( primary) hypertension - Discharge Dispostion Disposition: HOME Condition at time of disposition: Good - Referrals Referrals: ON STAFF,NOT [Primary Care Provider] - - Patient Instructions Printed Discharge Instructions: Nocturnal Leg Cramps, DI for Malignant Hypertension Additional Instructions: You were seen in the ER today for cramping in your legs and face. The results of your labs and imaging today were normal; we also gave you potassium and magnesium. Please follow-up with your primary care doctor within 1-2 days to discuss your visit and make sure your symptoms have improved. Please return to the ER if you have any worsening pain, weakness in your face or extremities, changes to your vision, development of fevers or chills, loss of consciousness, inability to tolerate food or fluids, or any other concerns. - Post Discharge Activity
[2018-06-09 20:18] LABS: EOS % 0.3 % (0-4.5); HEMATOCRIT 40.6 % (32.4-45.2); HEMOGLOBIN 13.1 GM/dL (10.7-15.3); MCH 26.6 pg (25.7-33.7); MCHC 32.3 g/dl (32.0-36.0); MEAN CELL VOLUME 82.4 fl (80-96); MEAN PLT VOLUME 8.3 fl (7.5-11.1); MONO % 8.4 % (3.8-10.2); NEUT % 52.3 % (42.8-82.8); PLATELET COUNT 232 K/MM3 (134-434); RBC 4.92 M/mm3 (3.60-5.2); RDW 14.5 % (11.6-15.6); WHITE BLOOD COUNT 3.9 K/mm3 (4.0-10.0)
[2018-06-09 20:43] LABS: INR 0.98 (0.83-1.09); PROTHROMBIN TIME (PATIENT) 11.6 SEC (9.7-13.0)
[2018-06-09 20:47] LABS: ALBUMIN 4.2 g/dl (3.4-5.0); ALK PHOS 85 U/L (45-117); ANION GAP 6 MMOL/L (8-16); BILIRUBIN,TOTAL 0.5 mg/dL (0.2-1); BLOOD UREA NITROGEN 14 mg/dL (7-18); CALCIUM 9.9 mg/dL (8.5-10.1); CHLORIDE 106 mmol/L (98-107); CHOLESTEROL 273 mg/dL (50-200); CO2 28 mmol/L (21-32); CREATININE 0.7 mg/dL (0.55-1.3); GLUCOSE,RANDOM 87 mg/dL (74-106); HDL CHOLESTEROL 100 mg/dL (40-60); POTASSIUM 3.9 mmol/L (3.5-5.1); SGOT/AST 25 U/L (15-37); SGPT/ALT 23 U/L (13-61); SODIUM 141 mmol/L (136-145); TOT PROT 8.1 g/dl (6.4-8.2); TRIGLYCERIDES 52 mg/dL (0-150)
[2018-06-09] MEDS ORDERED: POTASSIUM CHLORIDE ORAL LIQUID 20 MEQ/15 ML PO ONE (21:57)
[2018-06-09] MEDS ORDERED: ACETAMINOPHEN 325 MG TABLET (FP) PO ONE (21:59)
[2018-06-09] MEDS ORDERED: POTASSIUM CHLORIDE ORAL LIQUID 20 MEQ/15 ML ONE (22:42)
[2018-06-09] MEDS ORDERED: MAGNESIUM 1GM/D5W - 1 GM/100 ML IVPB IVPB ONE (22:42)
[2018-06-09] MEDS ORDERED: ACETAMINOPHEN 325 MG TABLET (FP) ONE (22:42)
[2018-06-09 23:37] LABS: PH,URINE 7.5 (5.0-8.0); URINE APPEARANCE CLEAR; URINE BILIRUBIN NEGATIVE (NEGATIVE); URINE COLOR YELLOW; URINE GLUCOSE (UA) NEGATIVE (NEGATIVE); URINE KETONE NEGATIVE (NEGATIVE); URINE LEUK ESTERASE NEGATIVE (NEGATIVE); URINE NITRITE NEGATIVE (NEGATIVE); URINE PROTEIN NEGATIVE (NEGATIVE); URINE UROBILINOGEN 0.2 mg/dL (0.2-1.0)
--- NOTE | 2018-06-09 23:58 | PDOC ---
Documentation entered by Jace Santana SCRIBE, acting as scribe for Kendra Delong MD. Kendra Delong MD: This documentation has been prepared by the Max knowles Nirvannie, SCRIBE, under my direction and personally reviewed by me in its entirety. I confirm that the documentation accurately reflects all work, treatment, procedures, and medical decision making performed by me. Attending Attestation - Resident Resident Name: NelidaRosa - ED Attending Attestation I have performed the following: I have examined & evaluated the patient, The case was reviewed & discussed with the resident, I agree w/resident's findings & plan - HPI HPI: 06/09/18 21:42 The patient is a 73 year old female, with a significant past medical history of HTN, who presents to the emergency department with, intermittent squeezing sensation to the L face and RLE. Patient was seen in the ER 2 days ago with a negative DVT ultrasound. She denies any focal weakness or blurred vision. Allergies: Penicillins. - Physicial Exam PE: 06/09/18 22:29 GENERAL: Awake, alert, and fully oriented, in no acute distress HEAD: No signs of trauma NECK: Normal ROM, supple, no lymphadenopathy, JVD, or masses LUNGS: Breath sounds equal, clear to auscultation bilaterally. No wheezes, and no crackles HEART: Regular rate and rhythm, normal S1 and S2, no murmurs, rubs or gallops ABDOMEN: Soft, nontender, normoactive bowel sounds. No guarding, no rebound. No masses EXTREMITIES: Normal range of motion, no edema. No clubbing or cyanosis. No cords, erythema, or tenderness NEUROLOGICAL: Cranial nerves II through XII grossly intact. Normal speech SKIN: Warm, Dry, normal turgor, no rashes or lesions noted. - Medical Decision Making 06/09/18 23:45 Labs are all normal; Pt's UA normal; exam normal. She states that she ambulates from early AM to the evening. Pt admits that she doesn't drinkenough water. Pt likely experiencing muscle cramps. Exam is normal and vitals EKG normal. She will be asked to follow with PMD
[2018-06-10 00:01] VITALS: BP 155/87; PULSE 72
--- NOTE | 2018-06-10 09:39 | EKG ---
Test Reason : Blood Pressure : / mmHG Vent. Rate : 065 BPM Atrial Rate : 065 BPM P-R Int : 174 ms QRS Dur : 100 ms QT Int : 404 ms P-R-T Axes : 067 002 048 degrees QTc Int : 420 ms NORMAL SINUS RHYTHM NORMAL ECG WHEN COMPARED WITH ECG OF 30-NOV-2016 03:41, NO SIGNIFICANT CHANGE WAS FOUND Confirmed by MARTIN TO MD ([id number]) on 06/10/2018 9:39:01 AM Referred By: Confirmed By:MARTIN TO MD
== END 2018-06-10 | disposition home or self-care (01) ==
LOC: JER 18:12
PROC: 3E033GC Introduction of Other Therapeutic Substance into Peripheral Vein, Percutaneous Approach (ICD-10-PCS; principal; 2018-06-09)
DX: M62.838 Other muscle spasm (principal); I10 Essential (primary) hypertension; M79.661 Pain in right lower leg
CPT/HCPCS: 36415; 70450-TC; 80053; 81003; 82465; 82550; 82553; 83718; 83721; 84478; 84484; 85025; 85610; 86850; 86900; 86901; 93005; 93010; 96365; 99283-25; J7030

== ENCOUNTER 2020-01-01 00:33 | Observation (INO) | payer OTHER ==
[2020-01-01 00:51] VITALS: BMI 25.2
[2020-01-01] MEDS ORDERED: LACTATED RINGERS SOLUTION 1000 ML INFUS.BAG IV ONE (01:14)
[2020-01-01 01:54] LABS: BASO % 0.3 % (0-2.0); EOS % 0.1 % (0-4.5); HEMATOCRIT 36.7 % (32.4-45.2); LYMPH % 20.1 % (8-40); MCH 27.1 pg (25.7-33.7); MCHC 32.8 g/dl (32.0-36.0); MEAN CELL VOLUME 82.6 fl (80-96); MEAN PLT VOLUME 8.6 fl (7.5-11.1); MONO % 6.8 % (3.8-10.2); NEUT % 72.7 % (42.8-82.8); PLATELET COUNT 230 K/MM3 (134-434); RBC 4.44 M/mm3 (3.60-5.2); RDW 14.1 % (11.6-15.6); WHITE BLOOD COUNT 6.4 K/mm3 (4.0-10.0)
[2020-01-01 02:09] LABS: CHLORIDE 107 mmol/L (98-107); POTASSIUM 3.5 mmol/L (3.5-5.1); SODIUM 142 mmol/L (136-145)
[2020-01-01 02:11] LABS: ALBUMIN 3.8 g/dl (3.4-5.0); ANION GAP 7 MMOL/L (8-16); BLOOD UREA NITROGEN 17.2 mg/dL (7-18); CALCIUM 9.2 mg/dL (8.5-10.1); CO2 27 mmol/L (21-32); GLUCOSE,RANDOM 146 mg/dL (74-106)
[2020-01-01 02:14] LABS: CREATININE 1.1 mg/dL (0.55-1.3); SGOT/AST 24 U/L (15-37); SGPT/ALT 19 U/L (13-61)
[2020-01-01 02:16] LABS: BILIRUBIN,TOTAL 0.6 mg/dL (0.2-1); TOT PROT 7.3 g/dl (6.4-8.2)
[2020-01-01 02:17] LABS: ALK PHOS 73 U/L (45-117)
[2020-01-01] MEDS: LACTATED RINGERS SOLUTION 1,000 ML/1,000 ML INFUS.BAG IV SCH (08:05)
[2020-01-01 10:47] LABS: CHOLESTEROL 280 mg/dL (50-200)
[2020-01-01 10:48] LABS: TRIGLYCERIDES 51 mg/dL (0-150)
[2020-01-01 10:49] LABS: LDL CHOLESTEROL (ONLY SJRH) 167 mg/dL (5-100)
[2020-01-01 10:50] LABS: HDL CHOLESTEROL 94 mg/dL (40-60)
[2020-01-01 11:33] LABS: EPI CELLS 10 /uL (0-25.1); HYALINE CASTS 2 /uL (0-3.1); PH,URINE 5.5 (5.0-8.0); URINE APPEARANCE CLEAR; URINE BACTERIA 57 /uL (0-1359); URINE BILIRUBIN NEGATIVE (NEGATIVE); URINE COLOR YELLOW; URINE GLUCOSE (UA) NEGATIVE (NEGATIVE); URINE KETONE 1+ (NEGATIVE); URINE LEUK ESTERASE TRACE (NEGATIVE); URINE NITRITE NEGATIVE (NEGATIVE); URINE PROTEIN NEGATIVE (NEGATIVE); URINE RBC 7 /uL (0-23.9); URINE UROBILINOGEN 0.2 mg/dL (0.2-1.0); URINE WBC 45 /uL (0-25.8)
[2020-01-01 11:46] LABS: URINE BARBITURATES NEGATIVE ng/ml (CUTOFF=200); URINE BENZODIAZEPINES NEGATIVE ng/ml (CUTOFF=200)
[2020-01-01 11:47] LABS: COCAINE, UR NEGATIVE ng/ml (CUTOFF=300); METHADONE, UR NEGATIVE ng/ml (CUTOFF=300); OPIATES, URI NEGATIVE ng/ml (CUTOFF=300); PHENCYCLIDINE,URINE NEGATIVE ng/ml (CUTOFF=25); URINE AMPHETAMINES NEGATIVE ng/ml (CUTOFF=500)
[2020-01-01 13:59] LABS: PROTHROMBIN TIME (PATIENT) 12.1 SEC (9.7-13.0)
[2020-01-01 14:02] LABS: ACTIVATED PTT 30.4 SECONDS (25.2-36.5)
[2020-01-01 14:12] LABS: POTASSIUM 3.4 mmol/L (3.5-5.1)
[2020-01-01 14:14] LABS: CALCIUM 9.1 mg/dL (8.5-10.1)
[2020-01-01 14:15] LABS: MAGNESIUM 2.1 mg/dL (1.8-2.4)
[2020-01-01 14:16] LABS: ALBUMIN 3.6 g/dl (3.4-5.0)
[2020-01-01 14:18] LABS: CREATININE 0.7 mg/dL (0.55-1.3); PHOSPHOROUS 3.3 mg/dL (2.5-4.9)
[2020-01-01 14:19] LABS: BILIRUBIN,TOTAL 0.6 mg/dL (0.2-1)
[2020-01-01 14:47] LABS: HEMATOCRIT 35.5 % (32.4-45.2); HEMOGLOBIN 11.7 GM/dL (10.7-15.3); MCH 27.2 pg (25.7-33.7); MCHC 32.9 g/dl (32.0-36.0); MEAN CELL VOLUME 82.8 fl (80-96); MEAN PLT VOLUME 8.7 fl (7.5-11.1); PLATELET COUNT 206 K/MM3 (134-434); RBC 4.29 M/mm3 (3.60-5.2); RDW 13.9 % (11.6-15.6); WHITE BLOOD COUNT 3.9 K/mm3 (4.0-10.0)
[2020-01-01] MEDS: ENOXAPARIN NA (PORCINE) 40 MG/0.4 ML DISP.SYRIN SQ SCH (18:41)
[2020-01-01] MEDS ORDERED: LORazepam 2 MG/ML SDV VIAL ONE (19:58)
[2020-01-02] MEDS: LACTATED RINGERS SOLUTION 1,000 ML/1,000 ML INFUS.BAG IV SCH (06:25)
[2020-01-02] MEDS ORDERED: POTASSIUM CHLORIDE TABS 20 MEQ TABLET.ER (FP) PO ONE (07:53)
[2020-01-02 09:04] VITALS: PULSE 72
[2020-01-02] MEDS: ENOXAPARIN NA (PORCINE) 40 MG/0.4 ML DISP.SYRIN SQ SCH (09:24)
[2020-01-02] MEDS ORDERED: PT OWN MED DRAWER 7, Y5N ONE (13:11)
[2020-01-02 15:21] VITALS: BP 154/78; TEMP 98.3
== END 2020-01-02 15:35 | disposition home or self-care (01) ==
LOC: JER 00:33 → JERBED 02:57 → INTOOBSV 02:57 → J4S 01-02 01:56
PROVIDERS: ADMIT Internal Medicine; ATTEND Student in an Organized Health Care Education/Training Program
PROC: 3E023GC Introduction of Other Therapeutic Substance into Muscle, Percutaneous Approach (ICD-10-PCS; principal; 2020-01-01)
PROC: 3E0337Z Introduction of Electrolytic and Water Balance Substance into Peripheral Vein, Percutaneous Approach (ICD-10-PCS; 2020-01-01)
PROC: 3E033NZ Introduction of Analgesics, Hypnotics, Sedatives into Peripheral Vein, Percutaneous Approach (ICD-10-PCS; 2020-01-01)
DX: R55 Syncope and collapse (principal); I10 Essential (primary) hypertension; R32 Unspecified urinary incontinence; Z88.0 Allergy status to penicillin; K08.89 Other specified disorders of teeth and supporting structures; R68.84 Jaw pain; R79.89 Other specified abnormal findings of blood chemistry; R53.1 Weakness; R20.0 Anesthesia of skin; R20.2 Paresthesia of skin; Z29.9 Encounter for prophylactic measures, unspecified
CPT/HCPCS: 36415; 70450-TC; 70552-TC; 71046-TC-FY; 80053; 80061; 80307; 81003; 82550; 82553; 82962; 83036; 83721; 83735; 84100; 84443; 84484; 85025; 85027; 85610; 85730; 87040; 87086; 93005; 93010; 93306-TC; 93880-TC; 96361; 96372; 96374; 97116-GP; 97161-GP; 99285-25; C9803; G0378; U0003

== ENCOUNTER 2020-01-04 16:11 | Emergency (ER) | payer OTHER ==
[2020-01-04 16:15] VITALS: TEMP 98.2; BMI 25.6
[2020-01-04] MEDS ORDERED: amLODIPine BESYLATE 10 MG TABLET (FP) PO ONE (17:42)
[2020-01-04] MEDS ORDERED: LACTATED RINGERS SOLUTION 1000 ML INFUS.BAG IV ONE (17:46)
[2020-01-04] MEDS ORDERED: amLODIPine BESYLATE 5 MG TABLET (FP) ONE (18:44)
[2020-01-04 18:50] LABS: BASO % 0.8 % (0-2.0); EOS % 0.3 % (0-4.5); HEMOGLOBIN 11.3 GM/dL (10.7-15.3); LYMPH % 42.6 % (8-40); MCH 26.7 pg (25.7-33.7); MCHC 32.2 g/dl (32.0-36.0); MEAN CELL VOLUME 82.8 fl (80-96); MEAN PLT VOLUME 8.7 fl (7.5-11.1); NEUT % 48.3 % (42.8-82.8); PLATELET COUNT 189 K/MM3 (134-434); RBC 4.23 M/mm3 (3.60-5.2); RDW 14.3 % (11.6-15.6); WHITE BLOOD COUNT 3.4 K/mm3 (4.0-10.0)
[2020-01-04 19:17] LABS: CHLORIDE 109 mmol/L (98-107); POTASSIUM 3.6 mmol/L (3.5-5.1); SODIUM 142 mmol/L (136-145)
[2020-01-04 19:19] LABS: ALBUMIN 3.7 g/dl (3.4-5.0); ANION GAP 6 MMOL/L (8-16); BLOOD UREA NITROGEN 12.6 mg/dL (7-18); CALCIUM 9.3 mg/dL (8.5-10.1); CO2 28 mmol/L (21-32); GLUCOSE,RANDOM 84 mg/dL (74-106)
[2020-01-04 19:22] LABS: CREATININE 0.7 mg/dL (0.55-1.3); SGPT/ALT 18 U/L (13-61)
[2020-01-04 19:23] LABS: SGOT/AST 23 U/L (15-37)
[2020-01-04 19:24] LABS: BILIRUBIN,TOTAL 0.4 mg/dL (0.2-1); TOT PROT 6.8 g/dl (6.4-8.2)
[2020-01-04 19:25] LABS: ALK PHOS 64 U/L (45-117)
[2020-01-04 19:59] LABS: EPI CELLS 2 /uL (0-25.1); HYALINE CASTS 0 /uL (0-3.1); PH,URINE 6.5 (5.0-8.0); URINE APPEARANCE CLEAR; URINE BACTERIA 21 /uL (0-1359); URINE BILIRUBIN NEGATIVE (NEGATIVE); URINE COLOR YELLOW; URINE GLUCOSE (UA) NEGATIVE (NEGATIVE); URINE KETONE NEGATIVE (NEGATIVE); URINE LEUK ESTERASE TRACE (NEGATIVE); URINE NITRITE NEGATIVE (NEGATIVE); URINE PROTEIN NEGATIVE (NEGATIVE); URINE RBC 5 /uL (0-23.9); URINE UROBILINOGEN 0.2 mg/dL (0.2-1.0); URINE WBC 14 /uL (0-25.8)
[2020-01-04 20:33] VITALS: BP 167/95; PULSE 72
== END 2020-01-04 21:30 | disposition home or self-care (01) ==
LOC: JER 16:11
DX: R42 Dizziness and giddiness (principal)
CPT/HCPCS: 36415; 71046-TC-FY; 80053; 81003; 84484; 85025; 93005; 93010; 99285-25

== ENCOUNTER 2020-07-17 02:32 | Emergency (ER) | payer OTHER ==
[2020-07-17 02:42] VITALS: BMI 26.2
[2020-07-17] MEDS ORDERED: methylPREDNISolone NA SUCC 125 MG/2 ML VIAL IVPB ONE (03:02)
[2020-07-17] MEDS ORDERED: FAMOTIDINE 20 MG/50 ML IVPB 20 MG/50 ML MG IVPB ONE ×2 (03:14→03:15)
[2020-07-17] MEDS ORDERED: methylPREDNISolone NA SUCC 125 MG/2 ML VIAL ONE (03:14)
[2020-07-17 05:29] VITALS: BP 138/84; PULSE 66; TEMP 97.9
== END 2020-07-17 05:32 | disposition home or self-care (01) ==
LOC: JER 02:32
PROC: 3E033GC Introduction of Other Therapeutic Substance into Peripheral Vein, Percutaneous Approach (ICD-10-PCS; principal; 2020-07-17)
PROC: 3E033GC Introduction of Other Therapeutic Substance into Peripheral Vein, Percutaneous Approach (ICD-10-PCS; 2020-07-17)
PROC: 3E033GC Introduction of Other Therapeutic Substance into Peripheral Vein, Percutaneous Approach (ICD-10-PCS; 2020-07-17)
DX: L29.9 Pruritus, unspecified (principal)
CPT/HCPCS: 99284-25

== ENCOUNTER 2020-11-24 19:25 | Emergency (ER) | payer OTHER ==
[2020-11-24 19:35] VITALS: BP 174/96; PULSE 95; TEMP 98.4; BMI 25.4
[2020-11-24 22:03] LABS: BASO % 0.6 % (0-2.0); EOS % 0.4 % (0-4.5); HEMATOCRIT 36.1 % (32.4-45.2); HEMOGLOBIN 12.1 GM/dL (10.7-15.3); LYMPH % 40.9 % (8-40); MCH 27.6 pg (25.7-33.7); MCHC 33.6 g/dl (32.0-36.0); MEAN CELL VOLUME 82.2 fl (80-96); MEAN PLT VOLUME 8.1 fl (7.5-11.1); MONO % 8.5 % (3.8-10.2); NEUT % 49.6 % (42.8-82.8); PLATELET COUNT 235 10^3/uL (134-434); RBC 4.39 M/mm3 (3.60-5.2); RDW 14.2 % (11.6-15.6); WHITE BLOOD COUNT 3.7 K/mm3 (4.0-10.0)
[2020-11-24 22:24] LABS: ALBUMIN 3.5 g/dl (3.4-5.0); BLOOD UREA NITROGEN 12.6 mg/dL (7-18); CALCIUM 9.6 mg/dL (8.5-10.1); MAGNESIUM 1.8 mg/dL (1.8-2.4)
[2020-11-24 22:26] LABS: CREATININE 0.7 mg/dL (0.55-1.3); PHOSPHOROUS 3.6 mg/dL (2.5-4.9)
[2020-11-24 22:28] LABS: BILIRUBIN,TOTAL 0.4 mg/dL (0.2-1)
== END 2020-11-24 23:00 ==
LOC: JER 19:25
DX: G50.1 Atypical facial pain (principal)
CPT/HCPCS: 36415; 80053; 83735; 84100; 85025; 93005; 93010; 99284-25

== ENCOUNTER 2021-09-05 00:15 | Emergency (ER) | payer OTHER ==
[2021-09-05 00:43] VITALS: TEMP 100.7; BMI 25.8
[2021-09-05] MEDS ORDERED: SODIUM CHLORIDE 0.9% 500 ML INFUS.BAG IV ONE (00:58)
[2021-09-05] MEDS ORDERED: ACETAMINOPHEN 1000 MG/100 ML BAG IVPB ONE (00:58)
[2021-09-05] MEDS ORDERED: METOCLOPRAMIDE HCL INJECTION 10 MG/2 ML VIAL IVPUSH ONE (00:58)
[2021-09-05] MEDS ORDERED: METOCLOPRAMIDE HCL INJECTION 10 MG/2 ML VIAL ONE (01:03)
[2021-09-05] MEDS ORDERED: ACETAMINOPHEN INJECTION 100 ML IVPB ONE (01:03)
[2021-09-05 01:42] LABS: BASO % 0.3 % (0-2.0); EOS % 0.1 % (0-4.5); HEMATOCRIT 38.6 % (32.4-45.2); HEMOGLOBIN 12.7 GM/dL (10.7-15.3); LYMPH % 6.5 % (8-40); MCH 26.8 pg (25.7-33.7); MCHC 32.8 g/dl (32.0-36.0); MEAN CELL VOLUME 81.6 fl (80-96); MEAN PLT VOLUME 8.2 fl (7.5-11.1); MONO % 12.6 % (3.8-10.2); NEUT % 80.5 % (42.8-82.8); PLATELET COUNT 216 10^3/uL (134-434); RBC 4.73 M/mm3 (3.60-5.2); RDW 14.5 % (11.6-15.6); WHITE BLOOD COUNT 6.2 K/mm3 (4.0-10.0)
[2021-09-05 02:05] LABS: CALCIUM 9.2 mg/dL (8.5-10.1)
[2021-09-05 02:06] LABS: BLOOD UREA NITROGEN 9.7 mg/dL (7-18)
[2021-09-05 02:09] LABS: CREATININE 0.8 mg/dL (0.55-1.3)
[2021-09-05 02:11] LABS: TOT PROT 7.6 g/dl (6.4-8.2)
[2021-09-05 02:16] LABS: BILIRUBIN,TOTAL 0.6 mg/dL (0.2-1)
[2021-09-05 03:49] VITALS: BP 135/93; PULSE 78; RESP 18
== END 2021-09-05 06:32 | disposition home or self-care (01) ==
LOC: JER 00:15
PROC: 3E033GC Introduction of Other Therapeutic Substance into Peripheral Vein, Percutaneous Approach (ICD-10-PCS; principal; 2021-09-05)
DX: U07.1 COVID-19 (principal); R51.9 Headache, unspecified
CPT/HCPCS: 0241U-QW; 36415; 70450-TC; 70486-TC; 80053; 83735; 84484; 85025; 93005; 93010; 99285-25

== ENCOUNTER 2022-07-02 13:36 | Observation (INO) | payer OTHER ==
[2022-07-02 14:00] VITALS: RESP 18
[2022-07-02] MEDS ORDERED: ACETAMINOPHEN 500 MG TABLET (FP) PO ONE (14:44)
[2022-07-02] MEDS ORDERED: ACETAMINOPHEN 500 MG TABLET (FP) ONE (14:46)
[2022-07-02] MEDS ORDERED: oxyCODONE HCL 5 MG TABLET PO ONE (15:39)
[2022-07-02] MEDS ORDERED: IBUPROFEN 600 MG TABLET (FP) PO ONE ×5 (15:40→16:53)
[2022-07-02] MEDS ORDERED: oxyCODONE HCL 5 MG TABLET ONE (15:41)
[2022-07-02] MEDS ORDERED: LIDOCAINE 2.5%/PRILOCAINE 2.5% (5 Gram/TUBE) TP ONE ×2 (16:54→16:58)
[2022-07-02] MEDS ORDERED: traMADol HCL 50 MG TABLET PO ONE ×2 (19:24→20:31)
[2022-07-02] MEDS ORDERED: traMADol HCL 50 MG TABLET ONE (19:31)
[2022-07-02] MEDS ORDERED: traMADol HCL 50 MG TABLET PO PRN (20:53)
[2022-07-02 21:57] LABS: HEMATOCRIT 36.6 % (32.4-45.2); HEMOGLOBIN 12.1 GM/dL (10.7-15.3); MCH 26.8 pg (25.7-33.7); MEAN CELL VOLUME 81.3 fl (80-96); MEAN PLT VOLUME 8.6 fl (7.5-11.1); PLATELET COUNT 226 10^3/uL (134-434); RDW 14.3 % (11.6-15.6); WHITE BLOOD COUNT 7.1 K/mm3 (4.0-10.0)
[2022-07-02 22:22] LABS: POTASSIUM 4.3 mmol/L (3.5-5.1)
[2022-07-02 22:24] LABS: CALCIUM 9.7 mg/dL (8.5-10.1)
[2022-07-02 22:25] LABS: ALBUMIN 3.8 g/dl (3.4-5.0); BLOOD UREA NITROGEN 14.4 mg/dL (7-18)
[2022-07-02 22:28] LABS: CREATININE 0.7 mg/dL (0.55-1.3)
[2022-07-02 22:29] LABS: BILIRUBIN,TOTAL 0.5 mg/dL (0.2-1)
[2022-07-02 22:30] LABS: TOT PROT 7.3 g/dl (6.4-8.2)
[2022-07-03 00:20] VITALS: BMI 25.8
[2022-07-03 08:12] LABS: HEMOGLOBIN 11.3 GM/dL (10.7-15.3); MCH 26.8 pg (25.7-33.7); MCHC 33.2 g/dl (32.0-36.0); MEAN CELL VOLUME 80.6 fl (80-96); MEAN PLT VOLUME 8.4 fl (7.5-11.1); PLATELET COUNT 216 10^3/uL (134-434); RBC 4.22 M/mm3 (3.60-5.2); RDW 14.4 % (11.6-15.6)
[2022-07-03] MEDS: amLODIPine BESYLATE 10 MG TABLET (FP) PO SCH (09:23)
[2022-07-03] MEDS: ACETAMINOPHEN 325 MG TABLET (FP) PO PRN (11:38)
[2022-07-03] MEDS: DOCUSATE SODIUM 100 MG CAPSULE (FP) PO SCH (22:12)
[2022-07-04] MEDS: ACETAMINOPHEN 325 MG TABLET (FP) PO PRN ×2 (05:46→10:34)
[2022-07-04 08:08] LABS: BASO % 0.3 % (0-2.0); EOS % 0.7 % (0-4.5); HEMATOCRIT 34.9 % (32.4-45.2); HEMOGLOBIN 11.6 GM/dL (10.7-15.3); LYMPH % 25.6 % (8-40); MCHC 33.3 g/dl (32.0-36.0); MEAN PLT VOLUME 8.3 fl (7.5-11.1); MONO % 9.7 % (3.8-10.2); NEUT % 63.7 % (42.8-82.8); PLATELET COUNT 200 10^3/uL (134-434); RBC 4.31 M/mm3 (3.60-5.2); RDW 14.6 % (11.6-15.6); WHITE BLOOD COUNT 4.6 K/mm3 (4.0-10.0)
[2022-07-04 08:21] LABS: POTASSIUM 4.4 mmol/L (3.5-5.1)
[2022-07-04 08:30] LABS: ALBUMIN 3.2 g/dl (3.4-5.0); MAGNESIUM 2.2 mg/dL (1.8-2.4)
[2022-07-04 08:31] LABS: BLOOD UREA NITROGEN 13.2 mg/dL (7-18)
[2022-07-04 08:33] LABS: CREATININE 0.7 mg/dL (0.55-1.3)
[2022-07-04 08:35] LABS: BILIRUBIN,TOTAL 0.6 mg/dL (0.2-1); TOT PROT 6.3 g/dl (6.4-8.2)
[2022-07-04] MEDS ORDERED: ENOXAPARIN NA (PORCINE) 40 MG/0.4 ML DISP.SYRIN SQ SCH (10:00)
[2022-07-04] MEDS: DOCUSATE SODIUM 100 MG CAPSULE (FP) PO SCH (10:34)
[2022-07-04] MEDS: amLODIPine BESYLATE 10 MG TABLET (FP) PO SCH (10:34)
[2022-07-04 14:57] VITALS: BP 146/90; PULSE 72; TEMP 98
== END 2022-07-04 16:42 | disposition home or self-care (01) ==
LOC: JER 13:36 → JERFT 13:36 → INTOOBSV 20:44 → JERBED 20:44 → J8W 23:44
PROVIDERS: ADMIT Internal Medicine; ATTEND Nurse Practitioner Family
DX: M25.062 Hemarthrosis, left knee (principal); I10 Essential (primary) hypertension; M25.562 Pain in left knee; M19.90 Unspecified osteoarthritis, unspecified site; Z29.8 Encounter for other specified prophylactic measures; Z88.0 Allergy status to penicillin
CPT/HCPCS: 36415; 73562-TC-LT-FY; 73718-TC-LT; 80053; 83735; 85025; 85027; 93005; 93010; 97116-GP; 97161-GP; 99285-25; C9803-CS; G0378; U0003; U0005